=== PATIENT | female | born 1995 | race Hispanic/Latino ===

== ENCOUNTER 2019-01-12 10:36 | Day surgery (SDC) | payer SELFPAY ==
[~2019-01-12 10:36] MED LIST: AZATHIOPRINE50 MG PO; IMODIUM2 MG PO; MIRENA20 MCG/24; PEPCID AC20 MG PO; VITAMIN D350000 UNI1
[2019-01-12 10:55] VITALS: BP 108/51
[2019-01-12 10:55] LABS: BARBITURATES NEGATIVE (NEGATIVE); COCAINE POSITIVE (NEGATIVE); METHADONE NEGATIVE (NEGATIVE); OXCYCODONE NEGATIVE (NEGATIVE); TETRAHYDROCANNABIONOL POSITIVE (NEGATIVE); TRICYLIC ANTIDEPRESSANTS NEGATIVE (NEGATIVE)
== END 2019-01-12 11:40 | disposition home or self-care (01) | DRG 951 ==
LOC: ORM 10:36
PROVIDERS: ATTEND Surgery
DX: Z53.09 Procedure and treatment not carried out because of other contraindication (principal); K62.5 Hemorrhage of anus and rectum

== ENCOUNTER 2019-05-25 | Day surgery (SDC) | payer MEDICAID ==
[~2019-05-25] MED LIST changes: +CLONAZEPAM0.5 M1 PO; +FOLIC ACID1 MG PO; +LEVOTHYROXIN75 MCG PO; +METHOTREXATE2.5 MG PO; +PROBIOTIC1 TAB PO
[2019-05-25] MEDS ORDERED: VITAMIN B-121000 MC4 IJ (09:24)
[2019-05-25] MEDS ORDERED: MEDICAL MARIJUANA (09:27)
[2019-05-25 09:49] LABS: BARBITURATES NEGATIVE (NEGATIVE); COCAINE NEGATIVE (NEGATIVE); METHADONE NEGATIVE (NEGATIVE); OXCYCODONE NEGATIVE (NEGATIVE); TETRAHYDROCANNABIONOL POSITIVE (NEGATIVE); TRICYLIC ANTIDEPRESSANTS NEGATIVE (NEGATIVE)
--- NOTE | 2019-05-31 13:05 | NUR ---
PER DR JACOB THE PATHOLOGY WAS BENIGN AND ALSO NEGATIVE FOR CHROHN'S. I ADVISED THE PATIENT THE SAME. I EXPLAINED TO HER THAT SHE NEEDS REPEAT COLONOSCOPY IN 5 YEARS. ADVISED HER THAT WE WANT TO SCHEDULE FOR EGD SOON WE ARE CLEAR TO SCHEDULE. SENT NOTE TO DR TORRES AT [facility].
== END 2019-05-25 11:31 | disposition home or self-care (01) ==
PROVIDERS: Surgery
DX: D12.4 Benign neoplasm of descending colon (principal); K63.89 Other specified diseases of intestine; K64.8 Other hemorrhoids